=== PATIENT | female | born 1985 | race Asian ===

== ENCOUNTER → 2023-03-02 10:39 | Outpatient (BNVA) | payer OTHER, SELFPAY | PROVIDERS: Visit Provider Obstetrics & Gynecology | DX: Z32.00 Encounter for pregnancy test, result unknown (principal) | CPT/HCPCS: 81025; 84315; 84702 ==

== ENCOUNTER → 2023-03-05 08:45 | Outpatient (BNVA) | payer OTHER, SELFPAY | PROVIDERS: Visit Provider Obstetrics & Gynecology | DX: Z32.00 Encounter for pregnancy test, result unknown (principal) | CPT/HCPCS: 84702 ==

== ENCOUNTER → 2023-03-22 11:40 | Outpatient (BNVA) | payer OTHER, SELFPAY | PROVIDERS: Visit Provider Obstetrics & Gynecology | DX: Z36.87 Encounter for antenatal screening for uncertain dates (principal) | CPT/HCPCS: 76817; 80307; 84315; 87086 ==

== ENCOUNTER → 2023-04-14 11:16 | Outpatient (BNVA) | payer OTHER, SELFPAY | PROVIDERS: Visit Provider Obstetrics & Gynecology | DX: Z34.00 Encounter for supervision of normal first pregnancy, unspecified trimester (principal) | CPT/HCPCS: 82950; 85027; 86592; 86762; 86803; 86850; 86900; 87340; 87806 ==

== ENCOUNTER → 2023-05-10 08:37 | Outpatient (BNVA) | payer OTHER, SELFPAY | PROVIDERS: Visit Provider Obstetrics & Gynecology | DX: Z34.00 Encounter for supervision of normal first pregnancy, unspecified trimester (principal); R82.90 Unspecified abnormal findings in urine | CPT/HCPCS: 81000; 87086 ==

== ENCOUNTER → 2023-06-10 13:22 | Outpatient (BNVA) | payer OTHER, SELFPAY | PROVIDERS: Visit Provider Obstetrics & Gynecology | DX: Z34.00 Encounter for supervision of normal first pregnancy, unspecified trimester (principal) | CPT/HCPCS: 76805; 84315 ==

== ENCOUNTER → 2023-07-08 12:49 | Outpatient (BNVA) | payer OTHER, SELFPAY | PROVIDERS: Visit Provider Obstetrics & Gynecology | DX: Z34.92 Encounter for supervision of normal pregnancy, unspecified, second trimester (principal); Z3A.24 24 weeks gestation of pregnancy | CPT/HCPCS: 76816 ==

== ENCOUNTER → 2023-08-03 15:47 | Outpatient (BNVA) | payer OTHER, SELFPAY | PROVIDERS: Visit Provider Obstetrics & Gynecology | DX: Z34.00 Encounter for supervision of normal first pregnancy, unspecified trimester (principal) | CPT/HCPCS: 82950; 84315; 85025 ==

== ENCOUNTER → 2023-08-05 08:00 | Outpatient (BNVA) | payer OTHER, SELFPAY | PROVIDERS: Visit Provider Obstetrics & Gynecology | DX: Z34.00 Encounter for supervision of normal first pregnancy, unspecified trimester (principal) | CPT/HCPCS: 82951; 82952 ==

== ENCOUNTER → 2023-08-12 12:31 | Outpatient (BNVA) | payer OTHER, SELFPAY | PROVIDERS: Visit Provider Obstetrics & Gynecology | DX: Z34.00 Encounter for supervision of normal first pregnancy, unspecified trimester (principal) | CPT/HCPCS: 76816 ==

== ENCOUNTER → 2023-09-14 08:07 | Outpatient (BNVA) | payer OTHER, SELFPAY | PROVIDERS: Visit Provider Nurse Practitioner Women's Health | DX: Z34.00 Encounter for supervision of normal first pregnancy, unspecified trimester (principal) | CPT/HCPCS: 81000 ==

== ENCOUNTER → 2023-09-28 10:08 | Outpatient (BNVA) | payer OTHER, SELFPAY | PROVIDERS: Visit Provider Obstetrics & Gynecology | DX: Z34.00 Encounter for supervision of normal first pregnancy, unspecified trimester (principal) | CPT/HCPCS: 84315; 87081; 87491; 87591 ==

== ENCOUNTER → 2023-10-05 10:34 | Outpatient (BNVA) | payer OTHER, SELFPAY | PROVIDERS: Visit Provider Obstetrics & Gynecology | DX: Z34.00 Encounter for supervision of normal first pregnancy, unspecified trimester (principal) | CPT/HCPCS: 76816; 84315 ==

== ENCOUNTER 2023-10-18 10:55 | Outpatient (CLI) | payer OTHER, SELFPAY ==
[2023-10-18 11:05] VITALS: BMI 32.4
[2023-10-18 11:08] VITALS: BP 127/80; PULSE 83
[2023-10-18 11:29] VITALS: BP 119/79; PULSE 82
[2023-10-18 11:40] VITALS: BP 119/79; PULSE 82; RESP 16
== END 2023-10-18 11:45 | disposition home or self-care (01) ==
LOC: OPOB 11:00 → OBGYN 11:03
PROVIDERS: Absent Provider Obstetrics & Gynecology; Visit Provider Obstetrics & Gynecology
DX: O36.8190 Decreased fetal movements, unspecified trimester, not applicable or unspecified (principal); Z3A.00 Weeks of gestation of pregnancy not specified
CPT/HCPCS: 59025; 81000; 99211

== ENCOUNTER 2023-10-21 11:13 | Outpatient (CLI) | payer OTHER, SELFPAY ==
[2023-10-21 11:41] VITALS: RESP 16
[2023-10-21 11:45] VITALS: BMI 33.0
[2023-10-21 12:15] VITALS: BP 113/86; PULSE 90; RESP 16; TEMP 35.3
== END 2023-10-21 12:15 | disposition home or self-care (01) ==
LOC: OPOB 11:18 → OBGYN 11:22
PROVIDERS: Visit Provider Obstetrics & Gynecology
DX: O24.419 Gestational diabetes mellitus in pregnancy, unspecified control (principal); Z3A.00 Weeks of gestation of pregnancy not specified
CPT/HCPCS: 59025; 99211

== ENCOUNTER → 2023-10-26 10:38 | Outpatient (BNVA) | payer OTHER, SELFPAY | PROVIDERS: Visit Provider Obstetrics & Gynecology | DX: Z34.03 Encounter for supervision of normal first pregnancy, third trimester (principal) | CPT/HCPCS: 76819 ==

== ENCOUNTER 2023-10-26 13:02 | Inpatient (IN) | payer OTHER, SELFPAY ==
[2023-10-26] VITALS (15 sets, daily range): BP systolic 99–132; BP diastolic 64–94; PULSE 80–98; RESP 16–18; TEMP 36.2; BMI 32.2
[2023-10-26 13:11] LABS: Basophils % 0.4 %; Eosinophils # 0.3 10^3/uL (0.0-0.8); Hematocrit 36.8 % (36-47); Lymphocytes # 2.7 10^3/uL (0.8-4.8); Mean Corpuscular HGB Conc 34.2 g/dL (30-55); Mean Corpuscular Hemoglobin 29.2 pg (27-33); Mean Corpuscular Volume 85.4 fl (85-98); Mean Platelet Volume 11.5 fL (7.4-10.4); Monocytes # 0.7 10^3/uL (0.2-0.9); Monocytes % 6.5 %; Neutrophils % 63.3 %; Nucleated Red Blood Cells % 0 %; Platelet Count 304 10^3/cmm (157-399); Red Blood Count 4.31 10^6/uL (3.85-5.65); Red Cell Distribution Width 15.1 % (12.1-15.1); White Blood Count 10.42 10^3/uL (3.29-11.43)
[2023-10-26] MEDS: miSOPROStol 100 mcg tablet 25 MCG VAGINAL ×2 (13:20→17:47)
--- NOTE | 2023-10-26 13:50 | PM.OBGYHP ---
Providers/Chief Complaint Admitting Physician: Gaurang Chowdary MD Primary MOBILITY ARCHITECT MANAGER: Gaurang Chowdary MD Chief Complaint: INDUCTION OF LABOR FOR LOW JAYLON HPI MOBILITY ARCHITECT MANAGER History of Present Illness 38 y.o. SA1 EDC October 25, 2023, c/w 6-week sono At 40 w 1 d No c/o + active movements Had biophysical profile done this a.m. JAYLON was 5 Patient now admitted for induction of labor Present Details : 1 Labs Rubella: Immune RPR: Negative GBS: Negative Medications/Allergies Home Medications Medication Instructions Recorded Confirmed Last Taken Type blood-glucose meter (Accu-Chek #1 ea 04/16/23 10/26/23 Unknown Rx Guide Glucose Meter) omeprazole 20 mg capsule,delayed 20 mg PO BID PRN heartburn #60 caps 08/03/23 10/26/23 Unknown Rx release blood sugar diagnostic (Accu-Chek #100 ea 08/19/23 10/26/23 Unknown Rx Guide test strips) lancets 31 gauge (Comfort Touch #100 ea 08/19/23 10/26/23 Unknown Rx Ultra Thin Lancets) RSV vac, preF A and preF B(PF) 120 0.5 ml IM ONCE #1 ea 09/14/23 10/26/23 Unknown Rx mcg/0.5 mL IM solution (Abrysvo) Vitamin D (with calcium) 10/26/23 10/26/23 08:00 History docusate sodium 100 mg capsule mg PO 10/26/23 10/26/23 08:00 History (Dulcolax Stool Softener (docusate)) lactobacillus comb no.10 20 20,000 mmu cells PO DAILY 10/26/23 10/26/23 10/26/23 08:00 History billion cell capsule (Probiotic) no.58-iron bisglycinate cap PO 10/26/23 10/26/23 08:00 History 10 mg iron-folic acid 400 mcg capsule vitamin B12 500 mcg-folic acid 400 1 tab PO DAILY 10/26/23 10/26/23 08:00 History mcg tablet Allergies Allergy/AdvReac Type Severity Reaction Status Date / Time No Known Allergies Allergy Verified 10/26/23 11:03 PFSH MOBILITY ARCHITECT MANAGER PFSH: Family History Mother Chronic kidney disease (CKD) Hypertension Father CAD (coronary artery disease) Denies family history of Diabetes Psychiatric illness Lung disease Cancer Stroke History History History 2 Term 0 0 Miscarriages/Ectopic 1 Living Children 0 Care CHEN Calculator Estimated Delivery Date Method Current WG Current Estimate 10/25/23 LMP (Certain) 40w 2d Vitals/I&O/Wt Last Vital Signs Temp 97.2 F L 10/26/23 12:32 Pulse 86 10/26/23 18:40 Resp 18 10/26/23 16:39 BP 111/66 10/26/23 18:40 O2 Del Method Room Air 10/26/23 13:00 10/26/23 10/26/23 10/27/23 14:59 22:59 06:59 Intake Total 1400 / 1400 Balance 1400 / 1400 Weight last 48 hrs Weight 165 lb Weight 165 lb Weight 165 lb Physical Exam Narrative: Weight 164 lbs; 5? VS normal Comfortable, awake, alert Lungs: clear Cor: RRR Abd: nontender FH 37 cm; cephalic FHTs normal Cervix: FT / 25% / -3 / posterior Ext: no edema External monitor: heart tracing good variability, + accelerations Urinary Catheter Management: Francis: Cath Placed During This Visit: yes Urinary Catheter Date of Insertion: 10/27/23 Urinary Catheter Time of Insertion: 00:17 Data 10/26/23 12:45 Results Labs OB ([facility]): Obstetrics US 10/05/23 Obstetrics US/Biophysical Profile 10/26/23 Blood Type B Positive 10/26/23 Antibody Screen Negative 10/26/23 Hct 36.8 % (36-47) 10/26/23 Hgb 12.60 g/dL (11.27-16.99) 10/26/23 Rho(D) Type Rh positive 10/26/23 Plt Count 304 10^3/cmm (157-399) 10/26/23 Hep Bs Antigen Non-reactive (Nonreactive) 04/14/23 Hepatitis C Antibody Non-reactive (Nonreactive) 04/14/23 Rubella IgG Antibody 296.4 IU/mL (0.0-10.0) H 04/14/23 RPR Nonreactive (Nonreactive) 04/14/23 HIV 1&2 Ab & HIV 1 Ag Non-reactive (Non-Reactiv) 04/14/23 C.trachomatis RNA (TMA) Not detected (NOT DETECTED) 09/28/23 N.gonorrhoeae RNA (TMA) Not detected (NOT DETECTED) 09/28/23 T. vaginalis Amp RNA Not detected (NOT DETECTED) 09/28/23 Chlamydia/GC Comment See note 09/28/23 Gest Glucose Tolerance mg/dL 08/05/23 Ser , Semi-Qnt 77662.00 mIU/mL 03/05/23 HCG, Qual Positive (Negative) H 03/02/23 Urine Opiates Screen Negative ng/mL (Negative) 03/22/23 Ur Barbiturates Screen Negative ng/mL (Negative) 03/22/23 Ur Phencyclidine Scrn Negative ng/mL (Negative) 03/22/23 Ur Amphetamines Screen Negative ng/mL (Negative) 03/22/23 U Benzodiazepines Scrn Negative ng/mL (Negative) 03/22/23 Urine Cocaine Screen Negative ng/mL (Negative) 03/22/23 U Marijuana (THC) Screen Negative ng/mL (Negative) 03/22/23 Micro Urine Specimen 05/10/23 A&P Assessment and plan (1) Supervision of normal first : 40 w 1 d Qualifiers: Trimester: third trimester Qualified Code(s): Z34.03 - Encounter for supervision of normal first , third trimester (2) Oligohydramnios: Relative oligohydramnios Fetus reassuring Plan admit for labor induction Plan Cytotec 25 ug intravaginal Attestations Medical Necessity Statement*: patient at 40 w 1 d with relative oligohydramnios, admitted for induction of labor Coding Level of Care Code Acute Code for Chg Fwd Diagnoses Encounter for supervision of normal first in third trimester Z34.03 Trimester: third trimester Oligohydramnios O41.00X0 Time Spent (min) 45
[2023-10-26] MEDS: lactated ringers 1,000 ML 999 ML IV ×2 (20:35→22:35)
--- NOTE | 2023-10-26 23:50 | P.PN_ITS ---
FRONT SIGHT ATTACHER Subjective 2 Subjective: Interval history: Patient received two doses of Cytotec 25 ug intravaginally Fetus was reassuring But had several isolated episodes of decelerations Now with repetitive decelerations and decreased variability Cervix: 1 cm / 90 / -2 / posterior Patient is primigravida, remote from delivery, with repetitive heart rate decelerations Will proceed with for delivery Procedure and risks explained to patient, including, but not limited to, infection, bleeding, injury to internal organs, anesthesia, blood transfusions Patient understands and wants to proceed Labor: Station: -3 Amniotic Membrane Status: Intact Monitor Mode: External Contraction Pattern: Irregular Vitals/I&O/Wt Last Vital Signs Temp 97.2 F L 10/26/23 12:32 Pulse 86 10/26/23 18:40 Resp 18 10/26/23 16:39 BP 111/66 10/26/23 18:40 O2 Del Method Room Air 10/26/23 13:00 10/26/23 10/26/23 10/27/23 14:59 22:59 06:59 Intake Total 1400 / 1400 Balance 1400 / 1400 Weight last 48 hrs Weight 165 lb Weight 165 lb Weight 165 lb Physical Exam 2 Urinary Catheter Management: Francis: Cath Placed During This Visit: yes Urinary Catheter Date of Insertion: 10/27/23 Urinary Catheter Time of Insertion: 00:17 Data 10/26/23 12:45 A&P Assessment and plan (1) Supervision of normal first : Qualifiers: Trimester: third trimester Qualified Code(s): Z34.03 - Encounter for supervision of normal first , third trimester (2) Oligohydramnios: Attestations 2 Medical Necessity Statement*: patient undergoing labor induction. Cervix at 1 cm. heart tracing now showing repetitive decelerations. plan proceed with for delivery. Coding Level of Care Code Acute Code for Chg Fwd Diagnoses Encounter for supervision of normal first in third trimester Z34.03 Trimester: third trimester Oligohydramnios O41.00X0 Time Spent (min) 60
--- NOTE | 2023-10-26 23:56 | ANES.PROC ---
Anesthesia Procedures Procedure/Date: 10/26/23 Epidural: Time Out Performed: Yes Consents Signed: Procedure Consent Consent: requested by attending/covering physician and from patient Lumbar Level: L3-L4 Epidural position: sitting Epidural procedure: sterile prep of area, 1% lidocaine to numb the area, 18 g needle, neg for paresthesia, test dose given, 1.5% xylocaine 1:200k epi (4cc), 0.2% Ropivacaine bolus ml (4cc and Fentanyl 100 mcg), no systemic response, sterile dressing applied, L.U.D. no apparent complications and 0.2% Ropiavacaine @ mls/hr (10 cc/hour. CHANCE at 7cm. Pt tolerated well)
[2023-10-27] VITALS (10 sets, daily range): BP systolic 79–128; BP diastolic 41–66; PULSE 84–107; RESP 16–18; TEMP 36.6–36.7; O2SAT 99–100; BMI 32.2
[2023-10-27] MEDS: ROPivacaine syringe 100 MG/50 ML SYRINGE 10 MG EPIDURAL (00:04)
[2023-10-27] MEDS: metoclopramide 5 mg/mL SDV 2 mL 10 MG IVP (00:39)
[2023-10-27] MEDS: citric acid-sodium citrate 30 mL UDC PO (00:39)
[2023-10-27] MEDS: famotidine 20 mg/2 mL INJ IVP (00:40)
[2023-10-27] MEDS: ceFAZolin 2,000 MG in sodium chloride 0.9% (plus) 50 ML 100 MG IV (00:45)
--- NOTE | 2023-10-27 01:35 | P.OP_ITS ---
Operative Report Date of procedure: October 27, 2023 Pre-op diagnosis: 40 w 1 d gestation Relative oligohydramnios Induction of labor Cervix at 1 cm Repetitive late decelerations Post-op diagnosis: same Post-op findings: Vigorous female infant Normal placenta and cord Normal uterus, tubes, and ovaries Procedure done: Primary low-transverse Implants: none Specimens removed/disposition: placenta and cord, discarded cord blood and gases, sent to lab Surgeon: Gaurang Chowdary MD Anesthesia: Epidural Estimated blood loss (mL): 500 Complications: none Condition: stable Disposition: floor Brief History: Patient is G1, at 40 w 1 d. OB sono showed JAYLON 5. Patient admitted for labor induction. Cervix was 1 cm. heart tracing showed repetitive late decelerations. Procedure: Informed consent signed. Patient was taken to the operating room, placed supine in the left lateral tilt position. Epidural anesthesia and a Francis catheter were already placed. The abdomen was prepped and draped in the usual sterile fashion. A Pfannenstiel incision was made and carried down through skin and subcutaneous tissue and fascia. The fascial incision was extended laterally with Good scissors. The fascia was from the underlying rectus muscles. The rectus muscles were split in the midline. The peritoneum was entered bluntly avoiding underlying organs. A bladder flap was created. A low transverse uterine incision was made and extended laterally bluntly avoiding the uterine vessels. Clear amniotic fluid was seen. The baby was delivered in cephalic presentation atraumatically. The baby was suctioned. The cord was clamped and cut and the baby was handed to an awaiting fire technology instructor. Cord blood was obtained. The placenta was manually removed intact. The uterus was not exteriorized. The uterine cavity was bluntly curetted with wet laps. The uterine incision was then closed with a continuous interlocking stitich of O chromic. Adequate h emostasis was seen. No bleeding was seen. The uterine incision was again inspected and found to have good hemostasis. The fascia was then closed with a continuous stitch of O-Vicryl. Additional interrupted stitches of O-Vicryl were used for fascial closure. The subcutaneous tissue was irrigated and inspected for hemostasis. The skin was then reapproximated using Insorb dewayne. Postoperative condition stable Disposition to recovery room Estimated blood loss 500 cc, no replacement Sponge, needle, and instrument counts were correct x two There were no complications
[2023-10-27] MEDS: miSOPROStol 200 mcg Tablet 800 MCG PR (02:25)
[2023-10-27] MEDS: dextrose 5%-lactated ringers 1,000 ML 125 ML IV (04:09)
--- NOTE | 2023-10-27 04:15 | PC.NURSE ---
See [facility] for vital signs from 1900 10/26/23 to 0700 on 10/27/23.
[2023-10-27] MEDS: ketorolac 30 mg/mL INJ IVP ×3 (04:33→18:06)
[2023-10-27] MEDS: oxytocin 30 UNIT/500 ML BAG 600 UNIT IV (04:54)
[2023-10-27] MEDS: HYDROcodone-acetaminophen 5-325 mg Tablet PO (12:15)
[2023-10-27] MEDS: prenatal vitamin Capsule 1 CAP PO (12:15)
[2023-10-27] MEDS: docusate sodium 100 mg Capsule PO ×2 (12:15→18:05)
[2023-10-27 12:56] LABS: Hematocrit 24.5 % (36-47); Mean Corpuscular HGB Conc 33.1 g/dL (30-55); Mean Corpuscular Hemoglobin 28.7 pg (27-33); Mean Corpuscular Volume 86.9 fl (85-98); Platelet Count 270 10^3/cmm (157-399); Red Blood Count 2.82 10^6/uL (3.85-5.65); White Blood Count 18.77 10^3/uL (3.29-11.43)
[2023-10-27 13:00] LABS: HIV 1 & 2 Antigen Non-Reactive (Non-Reactiv)
[2023-10-27 13:01] LABS: HIV 1 & 2 Antibody Non-Reactive (Non-Reactiv)
[2023-10-27 13:04] LABS: Hepatitis A Antibody IgM Non-Reactive (Nonreactive); Hepatitis B Core AB, Total Non-Reactive (Nonreactive); Hepatitis B Surface Antigen Non-Reactive (Nonreactive); Hepatitis C Virus Antibody Non-Reactive (Nonreactive)
[2023-10-27 13:12] LABS: Hepatitis B Surface AB > 1000.0 (11.5-1000)
[2023-10-27] MEDS: ferrous sulfate EC 325 mg Tablet PO (18:05)
[2023-10-28] MEDS: ketorolac 30 mg/mL INJ IVP (00:34)
[2023-10-28 04:00] VITALS: BP 120/55; PULSE 94; RESP 18; TEMP 36.8
[2023-10-28] MEDS: HYDROcodone-acetaminophen 5-325 mg Tablet PO ×2 (04:45→19:40)
[2023-10-28] MEDS: docusate sodium 100 mg Capsule PO ×2 (09:49→20:41)
[2023-10-28] MEDS: prenatal vitamin Capsule 1 CAP PO (09:49)
[2023-10-28] MEDS: ferrous sulfate EC 325 mg Tablet PO ×2 (09:49→20:42)
[2023-10-28] MEDS: ibuprofen 800 mg tablet PO ×3 (10:44→20:42)
--- NOTE | 2023-10-28 12:15 | P.PN_ITS ---
SECURITY INFRASTRUCTURE ENGINEER Subjective 2 Subjective: Interval history: c/o mild incisional pain, relieved with pain medication no bleeding, nausea, vomiting tolerating PO well voiding and ambulating without any problems caring for infant without any difficulties Labor: Station: -3 Amniotic Membrane Status: Intact Monitor Mode: External Contraction Pattern: Irregular Vitals/I&O/Wt Last Vital Signs Temp 98.3 F 10/28/23 04:00 Pulse 94 10/28/23 04:00 Resp 18 10/28/23 04:00 BP 120/55 10/28/23 04:00 Pulse Ox 99 10/27/23 02:15 O2 Del Method Room Air 10/28/23 04:00 Weight last 48 hrs Weight 165 lb Physical Exam 2 Narrative: afebrile, VS normal comfortable, awake, alert Lungs: clear Cor: RRR Abd: soft, nondistended, nontender fundus firm wound clean and dry Ext: normal postop Hgb 8.1 Urinary Catheter Management: Neil: Cath Placed During This Visit: yes, but has since been removed by the nurse Reason for Continuing Indwelling Catheter: Decision to DC Catheter Urinary Catheter Date of Insertion: 10/27/23 Urinary Catheter Time of Insertion: 00:17 Date Urinary Catheter Removed: 10/27/23 Time Urinary Catheter Discontinued: 15:25 Data 10/27/23 12:11 A&P Assessment and plan (1) S/P : POD #1 primary low-transverse doing well continue postop care remove neil ambulate Attestations 2 Medical Necessity Statement*: patient s/p for postoperative care Coding Level of Care Code Acute Code for Chg Fwd Diagnoses S/P Z98.891 Time Spent (min) 20
[2023-10-28 22:00] VITALS: BP 135/63; PULSE 93; RESP 18; TEMP 36.6; O2SAT 99
[2023-10-29 04:00] VITALS: BP 123/58; PULSE 98; RESP 18; TEMP 36.9
[2023-10-29] MEDS: HYDROcodone-acetaminophen 5-325 mg Tablet PO (06:26)
[2023-10-29] MEDS: docusate sodium 100 mg Capsule PO (09:48)
[2023-10-29] MEDS: prenatal vitamin Capsule 1 CAP PO (09:48)
[2023-10-29] MEDS: ibuprofen 800 mg tablet PO (09:48)
[2023-10-29] MEDS: ferrous sulfate EC 325 mg Tablet PO (09:48)
--- NOTE | 2023-10-29 09:50 | PM.OBGYPN ---
MANUFACTURING ENGINEER PAINT Subjective Subjective: Interval history: no c/o eating, voiding, ambulating well no pain, bleeding wants to go home without any difficulties Labor: Station: -3 Amniotic Membrane Status: Intact Monitor Mode: External Contraction Pattern: Irregular Vitals/I&O/Wt Last Vital Signs Temp 97.4 F L 10/29/23 11:20 Pulse 129 H 10/29/23 11:20 Resp 15 10/29/23 11:20 BP 128/75 10/29/23 11:20 Pulse Ox 99 10/28/23 22:00 O2 Del Method Room Air 10/29/23 04:00 Physical Exam Narrative: comfortable afebrile, VS normal Abd: soft, nontender wound clean and dry Ext: normal Urinary Catheter Management: Francis: Cath Placed During This Visit: yes, but has since been removed by the nurse Reason for Continuing Indwelling Catheter: Decision to DC Catheter Urinary Catheter Date of Insertion: 10/27/23 Urinary Catheter Time of Insertion: 00:17 Date Urinary Catheter Removed: 10/27/23 Time Urinary Catheter Discontinued: 15:25 Data 10/27/23 12:11 A&P Assessment and plan (1) S/P : POD #2 primary low-transverse doing well discharge home today instructions and precautions given call/return if fever, chills, nausea, vomiting, headaches, abdominal pain, bleeding, inability to void, swelling, leg pain; feelings of depression or mood changes; wound redness, swelling, or discharge f/u in 1 week or PRN Attestations Medical Necessity Statement*: patient s/p , plan discharge today Coding Level of Care Code Acute Code for Chg Fwd Diagnoses S/P Z98.891 Time Spent (min) 20
[2023-10-29 09:51] VITALS: BP 128/75; PULSE 129; RESP 15; TEMP 36.3
--- NOTE | 2023-10-29 10:05 | PM.OBGYDC ---
Discharge Providers HEEL ATTACHER WOOD Date of Admission: 10/26/23 13:02 Date of Discharge: 10/29/23 Attending Provider at Admission: Gaurang Chowdary MD Attending Provider at Discharge: Gaurang Chowdary MD Consults: none Primary HEEL ATTACHER WOOD: Gaurang Chowdary MD Diagnoses at Discharge Discharge Diagnosis (1) S/P : Details from hospital stay: patient admitted at 40 w 1 d for induction of labor due to relative oligohydramnios heart tracing began to have repetitive late decelerations at 1cm patient underwent primary low-transverse did well postop without any complications Status: Acute Reason for Visit Reason for Visit: INDUCTION OF LABOR FOR LOW JAYLON Brief History: patient admitted at 40 w 1 d for induction of labor due to relative oligohydramnios Hospital Course Hospital Course patient admitted at 40 w 1 d for induction of labor due to relative oligohydramnios heart tracing began to have repetitive late decelerations at 1cm patient underwent primary low-transverse did well postop without any complications Information Peripartum Data: Delivery Method: complications: none Physical Exam Narrative: afebrile, VS normal comfortable, awake, alert Lungs: clear Cor: RRR Abd: soft, nondistended, nontender fundus firm wound clean and dry Ext: normal Urinary Catheter Management: Francis: Cath Placed During This Visit: yes, but has since been removed by the nurse Reason for Continuing Indwelling Catheter: Decision to DC Catheter Urinary Catheter Date of Insertion: 10/27/23 Urinary Catheter Time of Insertion: 00:17 Date Urinary Catheter Removed: 10/27/23 Time Urinary Catheter Discontinued: 15:25 History History History 2 Term 0 0 Miscarriages/Ectopic 1 Living Children 0 Discharge Data Studies Completed and Pending Laboratory Results WBC 18.77 10^3/uL (3.29-11.43) H 10/27/23 12:11 RBC 2.82 10^6/uL (3.85-5.65) L 10/27/23 12:11 Hgb 8.10 g/dL (11.27-16.99) L D 10/27/23 12:11 Hct 24.5 % (36-47) L D 10/27/23 12:11 MCV 86.9 fl (85-98) 10/27/23 12:11 MCH 28.7 pg (27-33) 10/27/23 12:11 MCHC 33.1 g/dL (30-55) 10/27/23 12:11 RDW 15.0 % (12.1-15.1) 10/27/23 12:11 Plt Count 270 10^3/cmm (157-399) 10/27/23 12:11 MPV 12.0 fL (7.4-10.4) H 10/27/23 12:11 Neut % (Auto) 63.3 % 10/26/23 12:45 Lymph % (Auto) 26.0 % 10/26/23 12:45 Cameron % (Auto) 6.5 % 10/26/23 12:45 Eos % (Auto) 3.0 % 10/26/23 12:45 Baso % (Auto) 0.4 % 10/26/23 12:45 Neut # (Auto) 6.60 10^3/uL (1.8-7.7) 10/26/23 12:45 Lymph # (Auto) 2.7 10^3/uL (0.8-4.8) 10/26/23 12:45 Cameron # (Auto) 0.7 10^3/uL (0.2-0.9) 10/26/23 12:45 Eos # (Auto) 0.3 10^3/uL (0.0-0.8) 10/26/23 12:45 Baso # (Auto) 0.0 10^3/uL (0.0-0.1) 10/26/23 12:45 Nucleated RBC % (auto) 0 % 10/26/23 12:45 Nucleated RBCs # 0.0 /100WBC 10/26/23 12:45 Hepatitis A IgM Ab Non-reactive (Nonreactive) 10/27/23 12:11 Hep Bs Antigen Non-reactive (Nonreactive) 10/27/23 12:11 Hep Bs Antibody > 1000.0 (11.5-1000) H 10/27/23 12:11 Hep B Core Total Ab Non-reactive (Nonreactive) 10/27/23 12:11 Hepatitis C Antibody Non-reactive (Nonreactive) 10/27/23 12:11 HIV 1&2 Ab & HIV 1 Ag Non-reactive (Non-Reactiv) 10/27/23 12:11 HIV 1&2 Antibody Non-reactive (Non-Reactiv) 10/27/23 12:11 Blood Type B Positive 10/26/23 12:45 Rho(D) Type Rh positive 10/26/23 12:45 Antibody Screen Negative 10/26/23 12:45 Procedures Performed induction of labor primary low-transverse Vitals Last Vital Signs Temp 97.4 F L 10/29/23 11:20 Pulse 129 H 10/29/23 11:20 Resp 15 10/29/23 11:20 BP 128/75 10/29/23 11:20 Pulse Ox 99 10/28/23 22:00 O2 Del Method Room Air 10/29/23 04:00 Results Labs OB ([facility]): Obstetrics US 10/05/23 Obstetrics US/Biophysical Profile 10/26/23 Blood Type B Positive 10/26/23 Antibody Screen Negative 10/26/23 Hct 24.5 % (36-47) L 10/27/23 Hgb 8.10 g/dL (11.27-16.99) L 10/27/23 Rho(D) Type Rh positive 10/26/23 Plt Count 270 10^3/cmm (157-399) 10/27/23 Hep Bs Antigen Non-reactive (Nonreactive) 10/27/23 Hep B Core Total Ab Non-reactive (Nonreactive) 10/27/23 Hep Bs Antibody > 1000.0 (11.5-1000) H 10/27/23 Hepatitis C Antibody Non-reactive (Nonreactive) 10/27/23 Rubella IgG Antibody 296.4 IU/mL (0.0-10.0) H 04/14/23 RPR Nonreactive (Nonreactive) 04/14/23 HIV 1&2 Ab & HIV 1 Ag Non-reactive (Non-Reactiv) 10/27/23 C.trachomatis RNA (TMA) Not detected (NOT DETECTED) 09/28/23 N.gonorrhoeae RNA (TMA) Not detected (NOT DETECTED) 09/28/23 T. vaginalis Amp RNA Not detected (NOT DETECTED) 09/28/23 Chlamydia/GC Comment See note 09/28/23 Gest Glucose Tolerance mg/dL 08/05/23 Ser , Semi-Qnt 98061.00 mIU/mL 03/05/23 HCG, Qual Positive (Negative) H 03/02/23 Urine Opiates Screen Negative ng/mL (Negative) 03/22/23 Ur Barbiturates Screen Negative ng/mL (Negative) 03/22/23 Ur Phencyclidine Scrn Negative ng/mL (Negative) 03/22/23 Ur Amphetamines Screen Negative ng/mL (Negative) 03/22/23 U Benzodiazepines Scrn Negative ng/mL (Negative) 03/22/23 Urine Cocaine Screen Negative ng/mL (Negative) 03/22/23 U Marijuana (THC) Screen Negative ng/mL (Negative) 03/22/23 Micro Urine Specimen 05/10/23 Discharge Plan Discharge Patient Disposition: Home Condition: Stable Prescriptions: New Percocet 10-325 mg tablet 1 tab PO Q8H PRN (Reason: pain) Qty: 20 0RF Continued omeprazole 20 mg capsule,delayed release(DR/EC) 20 mg PO BID PRN (Reason: heartburn) Qty: 60 2RF Abrysvo 120 mcg/0.5 mL recon soln 0.5 ml IM ONCE Qty: 1 0RF (DME) blood-glucose meter [Accu-Chek Guide Glucose Meter] Misc See Rx Instructions .ROUTE .MEDSUPPLY Qty: 1 0RF Rx Instructions: As directed (DME) Accu-Chek Guide test strips Strip See Rx Instructions .ROUTE .MEDSUPPLY Qty: 100 2RF Rx Instructions: As directed (DME) Comfort Touch Ult Thin Lancets 31 gauge misc See Rx Instructions .ROUTE .MEDSUPPLY Qty: 100 2RF Rx Instructions: As directed docusate sodium [Dulcolax Stool Softener (dss)] 100 mg Capsule PO PNV comb no.58-iron bisgly-FA 10-400 mg-mcg Capsule PO vitamin M27-joiaq acid 500-400 mcg Tablet 1 tab PO DAILY Patient Comments: DOES NOT KNOW DOSE Rx Instructions: administer with a meal Probiotic 20 billion cell Capsule 20,000 mmu cells PO DAILY Patient Comments: DOES NOT KNOW DOSE Rx Instructions: administer with a meal Vitamin D (with calcium) Discharge Orders: Discharge Order (Routine); Ordered 10/29/23 Ordered By: Gaurang Chowdary Referrals: Gaurang Chowdary MD [Family Provider] - 11/03/23 2:45 pm (Patient to see Dr. Chowdary for one week check up on at 2:45PM Patient to see Dr. Chowdary for six week check up on December 07 @ 11:00AM) Discharge Diet: Usual diet Discharge Activity: Increase activity as tolerated Patient Instructions: Depression (DC), Bleeding (DC), Preeclampsia and Eclampsia After Delivery (GEN), Hemorrhage (DC), OB [facility], OB Discharge Report, OB Food/Drug Interaction Guide, OB Care at Home, Opioid Safety, OB Home Care, Abnormal Bleeding Discharge Attestations HEEL ATTACHER WOOD Time Spent in Discharge Care*: less than 30 min Coding Level of Care Code Acute Code for Chg Fwd Diagnoses S/P Z98.891 Time Spent (min) 20
[2023-10-29 11:20] VITALS: BP 128/75; PULSE 129; RESP 15; TEMP 36.3
== END 2023-10-29 11:30 | disposition home or self-care (01) | DRG 788 ==
LOC: OPOB 13:02 → OBGYN 13:02
PROVIDERS: Absent Provider Obstetrics & Gynecology; Admitting Provider Obstetrics & Gynecology; Family Provider Obstetrics & Gynecology; Visit Provider Obstetrics & Gynecology
PROC: 10D00Z1 Extraction of Products of Conception, Low, Open Approach (ICD-10-PCS; CPT 59514; principal; 2023-10-27 00:45)
DX: O41.03X0 Oligohydramnios, third trimester, not applicable or unspecified (principal); O48.0 Post-term pregnancy; Z3A.40 40 weeks gestation of pregnancy; O76 Abnormality in fetal heart rate and rhythm complicating labor and delivery; Z37.0 Single live birth
CPT/HCPCS: 36415; 51702; 59025; 59409; 84315; 85025; 85027; 86705; 86706; 86709; 86803; 86850; 86900; 87340; 87806; 96374; 96376; 98960; 99211; J0690; J1885; J2274; J2590; J2765; J2795; J3010; J3490; J7030; J7120; J7121

== ENCOUNTER → 2024-03-31 08:37 | Outpatient (BNVA) | payer OTHER, SELFPAY | PROVIDERS: Family Provider Obstetrics & Gynecology; Visit Provider Nurse Practitioner Family | DX: Z00.00 Encounter for general adult medical examination without abnormal findings (principal) | CPT/HCPCS: 80053; 80061; 84443; 85025 ==

== ENCOUNTER → 2024-12-27 16:20 | Outpatient (BNVA) | payer OTHER, SELFPAY | PROVIDERS: Family Provider Obstetrics & Gynecology; Visit Provider Obstetrics & Gynecology | DX: Z01.419 Encounter for gynecological examination (general) (routine) without abnormal findings (principal); Z00.00 Encounter for general adult medical examination without abnormal findings | CPT/HCPCS: 87624 ==

== ENCOUNTER 2024-12-29 15:08 | Outpatient (CLI) | payer OTHER, SELFPAY ==
--- NOTE | 2024-12-29 15:13 | MM_ITS ---
WS: [id number] BILATERAL 3D TOMOSYNTHESIS DIGITAL SCREENING MAMMOGRAPHY WITH CAD CLINICAL INFORMATION: SCREENING HISTORY: Screening mammogram. No current complaints. COMPARISON: Baseline TECHNIQUE: Bilateral CC and MLO views. FINDINGS: The breasts are composed of heterogeneous fibroglandular density tissue, which can limit the detection of small underlying mass lesions. No suspicious mass, asymmetry, calcifications, or architectural distortion. No evidence of malignancy. A few incidental punctate and clustered calcifications. MM/MM [facility] tomosynthesis [id number] IMPRESSION: DENSITY: The breasts are heterogeneously dense, which may obscure small masses. BI-RADS: 2 - Benign FOLLOW UP: 1 Year Follow-up Recommend return to annual screening mammography.
== END 2024-12-29 15:09 | disposition home or self-care (01) ==
LOC: RAD 15:09
PROVIDERS: Family Provider Obstetrics & Gynecology; PCP Family Medicine; Visit Provider Obstetrics & Gynecology
DX: Z12.31 Encounter for screening mammogram for malignant neoplasm of breast (principal); R92.333 Mammographic heterogeneous density, bilateral breasts; R92.1 Mammographic calcification found on diagnostic imaging of breast
CPT/HCPCS: 77063; 77067

== ENCOUNTER → 2025-07-05 15:33 | Outpatient (BNVA) | payer OTHER, SELFPAY | PROVIDERS: PCP Family Medicine; Visit Provider Family Medicine | DX: Z13.6 Encounter for screening for cardiovascular disorders (principal); R73.09 Other abnormal glucose; E78.1 Pure hyperglyceridemia | CPT/HCPCS: 80053; 80061; 83036; 84439; 84443; 85025 ==